=== PATIENT | female | born 1965 | race Hispanic/Latino ===

== ENCOUNTER 2023-08-27 21:37 | Inpatient (IN) | payer MEDICARE ==
[~2023-08-27] VITALS: Ht 152.4 cm; Wt 66.5 kg
[2023-08-27 22:17] LABS: BASOPHILS # (AUTO) 0.04 K/uL (0.00-0.20); BASOPHILS % (AUTO) 0.4 % (0.0-5.0); EOSINOPHILS # (AUTO) 0.24 K/uL (0.00-0.70); EOSINOPHILS % (AUTO) 2.6 % (0.0-8.0); HEMATOCRIT 32.6 % (36-48); IMMATURE GRANULOCYTE ABSOLUTE 0.05 K/uL (0-1); LYMPHOCYTES # (AUTO) 0.7 K/uL (1.0-4.8); LYMPHOCYTES % (AUTO) 7.4 % (21.0-51.0); MEAN CORPUSCULAR HEMOGLOBIN 30.5 pg (27.0-33.0); MEAN CORPUSCULAR HGB CONC 32.5 g/dL (32.0-36.0); MEAN CORPUSCULAR VOLUME 93.7 fL (79-99); MONOCYTES # (AUTO) 0.7 K/uL (0.1-1.0); NEUTROPHILS # (AUTO) 7.7 K/uL (1.8-7.7); NEUTROPHILS % (AUTO) 82.1 % (40.0-77.0); PLATELET COUNT (AUTO) 229 K/uL (130-400); RED BLOOD CELL COUNT(AUTO) 3.48 MIL/uL (4.00-5.50); WHITE BLOOD COUNT (AUTO) 9.3 K/uL (4.8-10.8)
[2023-08-27 22:26] LABS: CREATININE 6.5 mg/dL (0.5-1.5); POTASSIUM 5.6 mmol/L (3.5-5.1)
[2023-08-27 22:36] LABS: ALBUMIN 3.2 g/dL (3.5-5.0); BILIRUBIN,TOTAL 0.5 mg/dL (0.2-1.0)
[2023-08-27 22:44] LABS: B-TYPE NATRIURETIC PEPTIDE 2420 pg/mL (0-100)
[2023-08-27] MEDS: DiphenhydrAMINE HCL 50 MG/ML VIAL IV ONE (23:41)
[2023-08-27] MEDS: FAMOTIDINE 20MG VIAL IV ONE (23:41)
[2023-08-27] MEDS: ONDANSETRON 4MG INJ IVP ONE (23:41)
[2023-08-28] VITALS (23 sets, daily range): BP systolic 135–192; BP diastolic 80–102; PULSE 68–99; RESP 16–20; TEMP 97.8–98; O2SAT 93
[2023-08-28] MEDS: ASPIRIN 325MG EC TAB PO ONE (00:35)
[2023-08-28] MEDS: NA ZIRCON CYCLOSIL(LOKELMA 10GM) PO ONE (00:35)
[2023-08-28] MEDS ORDERED: ACETAMINOPHEN 325 MG TAB PO PRN (01:00)
[2023-08-28] MEDS ORDERED: DEXTROSE 50%-WATER 50 ML DISP.SYRIN IV PRN (01:00)
[2023-08-28] MEDS ORDERED: NITROGLYCERIN 0.4 MG SL TAB SL PRN (01:00)
[2023-08-28] MEDS ORDERED: GLUCAGON 1MG KIT 1 MG ML IM PRN (01:00)
[2023-08-28] MEDS: CLONIDINE HCL 0.1 MG TABLET PO ONE (01:22)
[2023-08-28] MEDS: HEPARIN 5,000 UNIT VIAL SQ SCH (01:24)
[2023-08-28] MEDS: HYDRALAZINE 20MG/ML VIAL IV PRN (02:16)
[2023-08-28] MEDS: ONDANSETRON 4MG INJ IV PRN (04:10)
[2023-08-28] MEDS: INSULIN HUMULIN R 100 UNIT/ML 3ML SQ SCH (07:25)
[2023-08-28 07:36] LABS: BASOPHILS # (AUTO) 0.04 K/uL (0.00-0.20); BASOPHILS % (AUTO) 0.5 % (0.0-5.0); EOSINOPHILS # (AUTO) 0.15 K/uL (0.00-0.70); EOSINOPHILS % (AUTO) 1.7 % (0.0-8.0); HEMATOCRIT 29.9 % (36-48); IMMATURE GRANULOCYTE ABSOLUTE 0.06 K/uL (0-1); LYMPHOCYTES # (AUTO) 0.8 K/uL (1.0-4.8); LYMPHOCYTES % (AUTO) 9.6 % (21.0-51.0); MEAN CORPUSCULAR HEMOGLOBIN 30.4 pg (27.0-33.0); MEAN CORPUSCULAR HGB CONC 32.4 g/dL (32.0-36.0); MEAN CORPUSCULAR VOLUME 93.7 fL (79-99); MONOCYTES # (AUTO) 0.8 K/uL (0.1-1.0); MONOCYTES % (AUTO) 8.7 % (3.0-13.0); NEUTROPHILS # (AUTO) 6.9 K/uL (1.8-7.7); NEUTROPHILS % (AUTO) 78.8 % (40.0-77.0); PLATELET COUNT (AUTO) 221 K/uL (130-400); RED BLOOD CELL COUNT(AUTO) 3.19 MIL/uL (4.00-5.50); RED CELL DISTRIBUTION WIDTH 16.8 % (11.0-15.5); WHITE BLOOD COUNT (AUTO) 8.7 K/uL (4.8-10.8)
[2023-08-28 07:43] LABS: HEMOGLOBIN A1C 5.9 % (4.0-6.0)
[2023-08-28 08:01] LABS: ALBUMIN 2.9 g/dL (3.5-5.0); BILIRUBIN,TOTAL 0.3 mg/dL (0.2-1.0); CREATININE 6.7 mg/dL (0.5-1.5); MAGNESIUM 2.3 mg/dL (1.80-2.40); THYROID STIMULATING HORMONE 1.08 uIU/mL (0.36-3.74); TOTAL PROTEIN, SERUM 6.4 g/dL (6.0-8.3)
[2023-08-28] MEDS: ACETAMINOPHEN 325 MG TAB PO PRN (08:43)
[2023-08-28] MEDS: ASPIRIN 81 MG EC TAB PO SCH (08:43)
[2023-08-28] MEDS: FAMOTIDINE 20MG TAB PO SCH (08:43)
[2023-08-28] MEDS: DiphenhydrAMINE HCL 50 MG/ML VIAL IV STA (13:55)
[2023-08-28] MEDS: EPOETIN ALFA-EPBX (NON-ESRD) 10,000 UNIT/ML VIAL SQ SCH (15:57)
[2023-08-28] MEDS ORDERED: CLON0.1T2 PO (18:17)
[2023-08-28] MEDS ORDERED: HYDR25 PO (18:17)
[2023-08-28] MEDS ORDERED: LOSA100T59 PO (18:17)
[2023-08-28] MEDS ORDERED: NIFE-40 PO (18:17)
[2023-08-28] MEDS ORDERED: CARV12.511 PO (18:17)
[2023-08-28] MEDS: HYDROMORPHONE 0.5 MG SYG (0.5MG/0.5ML) IVP STA (19:38)
[2023-08-28] MEDS: LABETALOL 20MG VIAL IV ONE (21:06)
[2023-08-28] MEDS: PROMETHAZINE HCL 25 MG/ML 1ML AMPULE IM ONE (21:06)
[2023-08-28] MEDS: CLONIDINE HCL 0.1 MG TABLET PO SCH (22:06)
[2023-08-28] MEDS: CARVEDILOL 12.5 MG TABLET PO SCH (22:06)
[2023-08-28] MEDS: NIFEDIPINE ER 30 MG TAB PO SCH (22:07)
[2023-08-28] MEDS: HYDRALAZINE 25MG TABLET PO SCH (22:27)
[2023-08-29] VITALS (11 sets, daily range): BP systolic 135–166; BP diastolic 65–87; PULSE 73–86; RESP 16–20; O2SAT 93–94
[2023-08-29 03:56] LABS: BASOPHILS # (AUTO) 0.05 K/uL (0.00-0.20); BASOPHILS % (AUTO) 0.6 % (0.0-5.0); EOSINOPHILS # (AUTO) 0.03 K/uL (0.00-0.70); EOSINOPHILS % (AUTO) 0.3 % (0.0-8.0); HEMATOCRIT 29.7 % (36-48); IMMATURE GRANULOCYTE ABSOLUTE 0.03 K/uL (0-1); LYMPHOCYTES # (AUTO) 0.6 K/uL (1.0-4.8); LYMPHOCYTES % (AUTO) 6.3 % (21.0-51.0); MEAN CORPUSCULAR HEMOGLOBIN 30.2 pg (27.0-33.0); MEAN CORPUSCULAR VOLUME 94.3 fL (79-99); MONOCYTES # (AUTO) 0.6 K/uL (0.1-1.0); MONOCYTES % (AUTO) 6.3 % (3.0-13.0); NEUTROPHILS # (AUTO) 7.6 K/uL (1.8-7.7); NEUTROPHILS % (AUTO) 86.2 % (40.0-77.0); PLATELET COUNT (AUTO) 213 K/uL (130-400); RED BLOOD CELL COUNT(AUTO) 3.15 MIL/uL (4.00-5.50); RED CELL DISTRIBUTION WIDTH 16.7 % (11.0-15.5); WHITE BLOOD COUNT (AUTO) 8.8 K/uL (4.8-10.8)
[2023-08-29 04:21] LABS: BILIRUBIN,TOTAL 0.5 mg/dL (0.2-1.0); MAGNESIUM 2.2 mg/dL (1.80-2.40); PHOSPHORUS 6.4 mg/dL (2.5-4.9); POTASSIUM 4.2 mmol/L (3.5-5.1); TOTAL PROTEIN, SERUM 6.5 g/dL (6.0-8.3)
[2023-08-29 04:48] LABS: B-TYPE NATRIURETIC PEPTIDE 948 pg/mL (0-100)
[2023-08-29 10:11] LABS: ABG BASE EXCESS 1.6 mmol/L (-2.0-3.0); ABG OXYGEN SATURATION 96.4 % (95.0-99.0); ABG PCO2 36 mmHg (32-45); ABG PH 7.462 (7.35-7.450); PO2, ARTERIAL BG 79.2 mmHg (83.0-108.0); VENT MODE, BG RA (ROOM AIR)
[2023-08-29] MEDS: LOSARTAN 100 MG TABLET PO SCH (10:18)
[2023-08-29] MEDS: NIFEDIPINE ER 30 MG TAB PO ONE (13:17)
[2023-08-29 19:57] LABS: HEPATITIS B CORE AB TOTAL Non-Reactive (Nonreactive); HEPATITIS B SURFACE ANTIBODY Negative (Reactive); HEPATITIS B SURFACE ANTIGEN Non-Reactive (Nonreactive)
[2023-08-29] MEDS: ATORVASTATIN 40 MG TABLET PO SCH (21:31)
[2023-08-29] MEDS: CARVEDILOL 25 MG TABLET PO SCH (21:32)
[2023-08-30] VITALS (22 sets, daily range): BP systolic 148–191; BP diastolic 75–97; PULSE 70–90; RESP 16–19; TEMP 97.5–97.7; O2SAT 96–98
[2023-08-30 05:45] LABS: HEMATOCRIT 31.2 % (36-48); MEAN CORPUSCULAR HEMOGLOBIN 30.4 pg (27.0-33.0); MEAN CORPUSCULAR HGB CONC 31.7 g/dL (32.0-36.0); MEAN CORPUSCULAR VOLUME 95.7 fL (79-99); PLATELET COUNT (AUTO) 195 K/uL (130-400); RED BLOOD CELL COUNT(AUTO) 3.26 MIL/uL (4.00-5.50); WHITE BLOOD COUNT (AUTO) 6.4 K/uL (4.8-10.8)
[2023-08-30 06:16] LABS: BILIRUBIN,TOTAL 0.3 mg/dL (0.2-1.0); CREATININE 7.1 mg/dL (0.5-1.5); PHOSPHORUS 6.8 mg/dL (2.5-4.9); POTASSIUM 4.6 mmol/L (3.5-5.1); TOTAL PROTEIN, SERUM 6.5 g/dL (6.0-8.3)
[2023-08-30 06:23] LABS: EOSINOPHILS % (MANUAL) 4 % (1-6); LYMPHOCYTES % (MANUAL) 11 % (22-44); MAN.DIFF COMMENT-IMPRESSION MANUAL DIFFERENTIAL; MONOCYTES % (MANUAL) 5 % (2-9); PLATELET MORPHOLOGY COMMENT ADEQUATE; SEGMENTED NEUTROPHILS % 80 % (40-70); TOTAL CELLS COUNTED 100; WBC MORPHOLOGY SMUDGE CELLS 1+
[2023-08-30] MEDS: NIFEDIPINE ER 30 MG TAB PO SCH (09:00)
[2023-08-30] MEDS ORDERED: CARV25TA PO (16:18)
[2023-08-30] MEDS ORDERED: ATOR40TA69 PO (16:18)
[2023-08-30] MEDS ORDERED: NIFE-40 PO (16:18)
[2023-08-30] MEDS ORDERED: AEC81 PO (16:18)
== END 2023-08-30 20:20 | disposition home or self-care (01) | DRG 280 ==
LOC: EDH 21:37 → EDHIP 08-28 00:48 → 2AH 08-28 10:40 → 3CH 08-29 18:35
PROVIDERS: ADMIT Internal Medicine; ATTEND Internal Medicine
PROC: 5A1D70Z Performance of Urinary Filtration, Intermittent, Less than 6 Hours Per Day (ICD-10-PCS; principal; 2023-08-28)
PROC: 5A1D70Z Performance of Urinary Filtration, Intermittent, Less than 6 Hours Per Day (ICD-10-PCS; 2023-08-30)
DX: I13.2 Hypertensive heart and chronic kidney disease with heart failure and with stage 5 chronic kidney disease, or end stage renal disease (principal); I50.31 Acute diastolic (congestive) heart failure; I21.A1 Myocardial infarction type 2; J96.01 Acute respiratory failure with hypoxia; N18.6 End stage renal disease; I16.1 Hypertensive emergency; E11.22 Type 2 diabetes mellitus with diabetic chronic kidney disease; J44.9 Chronic obstructive pulmonary disease, unspecified; I42.9 Cardiomyopathy, unspecified; I34.0 Nonrheumatic mitral (valve) insufficiency; E78.5 Hyperlipidemia, unspecified; E66.3 Overweight; E11.65 Type 2 diabetes mellitus with hyperglycemia; D63.1 Anemia in chronic kidney disease; E87.5 Hyperkalemia; Z99.2 Dependence on renal dialysis; Z79.899 Other long term (current) drug therapy; Z86.73 Personal history of transient ischemic attack (TIA), and cerebral infarction without residual deficits; Z86.19 Personal history of other infectious and parasitic diseases; Z90.710 Acquired absence of both cervix and uterus; Z68.28 Body mass index [BMI] 28.0-28.9, adult
CPT/HCPCS: 36415; 36600; 71045; 80053; 80061; 82306; 82607; 82746; 82803; 82948; 83036; 83540; 83735; 83880; 84100; 84443; 84484; 85025; 86704; 86706; 87340; 90935; 93005; 93306; G0378; J0360; J1170; J1200; J1644; J1815; J2405; J2550; J3490; Q5106